=== PATIENT | female | born 1950 | race Caucasian/White ===

== ENCOUNTER → 2018-01-31 | Outpatient (CLI) | payer OTHER, MEDICARE ==
[~2018-01-31] VITALS: Ht 167.6 cm; Wt 50.6 kg
[~2018-01-31] MED LIST: ASPIR 8181 MG PO; HYDROCODON-ACE1 EAC7 PO; IBUPROFEN 200200 M1 PO; MOBIC7.5 MG PO; NOLVADEX20 MG PO; PROZAC20 MG PO; TRAMADOL 50 MG50 MG PO; VITAMIN B-12500 MCG PO; WELLBUTRIN XL300 MG PO; ZANAFLEX2 MG PO
--- NOTE | ~2018-01-31 | HPC ---
[facility] [place] [address] PAIN MANAGEMENT CONSULTATION Name: LISET BUTCHER Room #: REG HASMUKH Madelyn#: [id number] Admission: 01/31/18 Attend Phys: Cem Gaston MD Discharge: Date of : 50 Report #: [id number] THIS REPORT FOR: //name// CC: Jennie Gaston DATE OF SERVICE: 01/31/2018 CHIEF COMPLAINT: Neck pain with radiation into the occiput. HISTORY OF PRESENT ILLNESS: The patient is a madonna 67-year old who is here today at the request of Dr. Jennie Pareeds and also friend, Rayne Saldaña. Beginning about 3 weeks ago, she started having stabbing, constant pain in her neck that comes and goes. It radiates a time up through the occipital nerve distribution and into the back of the head and causes a headache. Most of it, however, is in the neck by her drawing. She has localized trigger points along the left side of the neck. Pain is worse with movements. At times, the pain is exacerbated, tension type stress. She states that she has had that chronically. It should be noted that about 3 months ago she was found unconscious on the 's Day after attending a gathering. She did not drink to excess. She had some amnesia of the events. In the following month of September, October, November and December, she did not experience any neck pain, so it seems unusual but there is a fall may have been related. It should also be noted that she has had two other similar episodes within the last 3 years and has had an extensive workup with CT of neck and head and visits to the neurologist, EEGs and other tests with no definitive answer for these spells of amnesia when she has been found down. There is no history of seizure disorder. The patient has not had conservative treatment at this point. No acupuncture. No chiropractor. No massage. No physical therapy. She has been given some tramadol, which she takes when the pain is severe and also tizanidine either which are helping very much. There may be some interactions with these medications, which we discussed further visit. MEDICATIONS: Prozac, Wellbutrin, aspirin, tamoxifen, ibuprofen 12 per day, calcium and tizanidine. Tramadol 50 mg has been prescribed as well 1 tablet q. 6 hours, she has been taking 3-4 per day. ALLERGIES: PENICILLIN. PAST MEDICAL HISTORY: Positive for depression, carpal tunnel syndrome. She had carpal [place] in [address] [address] PAIN MANAGEMENT CONSULTATION Name: LISET BUTCHER Room #: REG Bayron Joshi#: [id number] Admission: 01/31/18 Attend Phys: Cem Gaston MD Discharge: Date of : 50 Report #: [id number] SOCIAL HISTORY: She is and does not smoke. Drinks alcohol in a social setting, may drink up to 10 units per week. 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 REVIEW OF SYSTEMS: Positive for decreased appetite, right-sided occipital headache, blurred vision, occasional constipation, nocturia and depression. ADDENDUM PHYSICAL EXAMINATION: GENERAL: Pleasant and slender female. VITAL SIGNS: Blood pressure is 118/70, heart rate 79 and respirations 16. She is 5 feet, 6 inches, 111 pounds with a BMI of 18. HEENT: Reveals pupils to be equal, round and reactive to light. EOMs are intact. Mucous membranes are moist. NECK: Shows restrictions in lateral tilt to the right, the ipsilateral pain side. There is local tenderness along the right side of the neck. She has no pain with rotational movements, which are near normal. Flexion and extension also near normal. CHEST: Clear. CARDIAC: Rhythm is regular. EXTREMITIES: Examination of the upper extremities reveals normal strength with no numbness, tingling or weakness. Deep tendon reflexes are 3+ biceps, triceps, brachioradialis, knees and ankles. Reflexes at knees bilaterally were nearing clonus. IMAGING: MRI shows only mild C5-C6 and C6-C7 central stenosis; however, with mild degenerative osteophyte complex touching, but not indenting the spinal cord. There are no focal disk herniations. At the same levels, there are severe neural foraminal stenosis due to uncovertebral joint hypertrophy and moderate right-sided C4-C5 neural foraminal narrowing. There is cervical straightening with a grade 1 C7-T1 anterolisthesis, which is below the area of maximal discomfort. IMPRESSION: Cervicalgia with occipital headaches. There is some degenerative pathology within the spine. Several levels would be of concern particularly C5-C6 and C6-C7 and the right-sided neural foraminal narrowing at C4-C5. This also includes concern about a grade 1 C7-T1 anterolisthesis. Any of these might be pain generators for the cervical spine, but the most common cause of this localized pain would be facet arthropathy with secondary myofascial muscle spasm resulting in tension repelling into an occipital neuralgia. INITIAL TREATMENT RECOMMENDATIONS: Would be conservative, range of motion [facility] [address] [place] [address] PAIN MANAGEMENT CONSULTATION Name: LISET BUTCHER Room #: REG [facility]#: [id number] Admission: 01/31/18 Attend Phys: Cem Gaston MD Discharge: Date of : 50 Report #: [id number] exercises and I would take her off of the 12 ibuprofen and put her on meloxicam. We are very clear about my instructions to avoid the ibuprofen and we put her on meloxicam and even wrote that on my prescription for the pharmacist to convey to her. I would not use tramadol given the fact that she is already on two antidepressants including Wellbutrin and Prozac, serotonin syndrome is a concern and she has already had two episodes of being found down on the ground. There is a risk of seizure from serotonin accumulation with tramadol and SSRI medications, so I have taken her off of tramadol today and placed her on hydrocodone for severe pain episodes. She should start at 2.5 mg as needed on onset of headache and we will watch carefully to make sure that she does not become habituated to them. An injection might be of some benefit. The question is what type of injection. This is not classic radicular pain; however, an epidural injection might be of some benefit given the broad spread nature of her pain. A single injection would spread within the epidural space and cortisone might be of some benefit. She had short-term benefit from a Dosepak. Trigger points for the myofascial tension, which is present today would be of some benefit. Duration of response is the only concern there. I would consider facet injections, but more than one level might be necessary and these would also be temporary. We discussed pain mechanisms, rationale for treatment and decided today that I would provide her with a prescription for hydrocodone and give trigger point injection in splenius capitis and cervicalis. PROCEDURE: Skin was prepped with ChloraPrep. Skin anesthetized and a 27-gauge needle was used to infiltrate trigger points along the splenius capitis, cervicalis and mid cervical spine. A total of 6 mL of 0.25% bupivacaine mixed with 1 mg per mL of triamcinolone was utilized. She tolerated the procedure well. Pain was reduced at discharge. Prescription was provided for hydrocodone 5/325 one half to one tablet taken for severe pain q. 6 hours. Followup visit as needed. By: [id number] Cem Gaston MD /nt
[2018-01-31 12:39] VITALS: BP 118/70
== END | disposition home or self-care (01) ==
LOC: PAIN 08:56
DX: M79.1 Myalgia (principal); M54.12 Radiculopathy, cervical region; G44.89 Other headache syndrome; F32.9 Major depressive disorder, single episode, unspecified; Z87.891 Personal history of nicotine dependence; Z88.0 Allergy status to penicillin; Z88.6 Allergy status to analgesic agent; Z88.8 Allergy status to other drugs, medicaments and biological substances; Z79.82 Long term (current) use of aspirin; Z79.899 Other long term (current) drug therapy; Z79.891 Long term (current) use of opiate analgesic

== ENCOUNTER → 2018-02-28 | Outpatient (CLI) | payer OTHER, MEDICARE ==
[~2018-02-28] VITALS: Ht 167.6 cm; Wt 51.6 kg
--- NOTE | ~2018-02-28 | HPC ---
[facility] [address] [place] [address] PAIN MANAGEMENT CONSULTATION Name: KERRYCHERELLELISET Kalin Room #: REG HASMUKH Joshi#: [id number] Admission: 02/28/18 Attend Phys: Cem Gaston MD Discharge: Date of : 50 Report #: [id number] THIS REPORT FOR: //name// CC: Jennie Gaston DATE OF SERVICE: 02/28/2018 Followup visit for cervicalgia with myofascial components. The patient is here today for trigger point injection. Her new granddaughter will be born soon! She will be traveling to [place] to help care for her. She responded nicely to her last injections. We discussed this at her visit on 02/21/2018. PQRS review shows a pleasant female with a history of osteoarthritis of the neck. BMI is 18.4, her typical weight, although it is below 20, this is not abnormal for her. Vital signs, blood pressure 104/67, heart rate 73, respirations 14, pain intensity 3. She is not a fall risk. She is on no blood thinners. She is not under treatment for hypertension. She takes no opioid medications. She does not smoke. Trigger point is identified in the left neck, cervicalis and the splenius capitis. PROCEDURE: Trigger point injection, left neck. Skin was prepped with ChloraPrep and a 27-gauge needle was used to infiltrate a total of 5 mL of 0.25% bupivacaine with 1 mg per mL of triamcinolone. Gentle massage of the area performed following the injection. She tolerated the procedure well, was discharged. Follow up as needed. By: 1323 1813 Cem Gaston MD /nt
[2018-02-28 09:22] VITALS: BP 104/67
== END | disposition home or self-care (01) ==
LOC: PAIN 06:33
DX: M79.1 Myalgia (principal); M54.2 Cervicalgia; Z88.0 Allergy status to penicillin; Z88.6 Allergy status to analgesic agent; Z88.8 Allergy status to other drugs, medicaments and biological substances; Z79.82 Long term (current) use of aspirin; Z79.899 Other long term (current) drug therapy; Z87.891 Personal history of nicotine dependence; Z98.890 Other specified postprocedural states

== ENCOUNTER → 2018-07-25 | Outpatient (CLI) | payer OTHER, MEDICARE ==
[~2018-07-25] VITALS: Ht 167.6 cm; Wt 52.6 kg
[~2018-07-25] MED LIST changes: +AMBIEN 5 MG TABL5 M1 PO; +VENLAFAXINE HC225 MG PO
--- NOTE | ~2018-07-25 | HPC ---
[facility] [address] [place] [address] PAIN MANAGEMENT CONSULTATION Name: LISET BUTCHER Kalin Room #: REG HASMUKH Joshi#: [id number] Admission: 07/25/18 ������������������ Attend Phys: Cem Gaston MD Discharge: ������������������ Date of : 50 Report #: [id number] THIS REPORT FOR: //name// CC: Jennie Gaston DATE OF SERVICE: 07/25/2018 Followup visit for cervicalgia with myofascial components. The patient returns to pain clinic today and has responded nicely in the past to trigger point injections. She has pain and muscle spasm involving the splenius capitis and cervicalis. She has pain with lateral movements of her neck; tilt, [id number] on either direction causes an aching pain that radiates through her shoulder. She has less discomfort with rotational movements, flexion and extension suggesting that this is a cervical spondylitic facet arthropathy. This could then trigger the muscle tension that she is experiencing. Her neck is very slender and you can palpate what feels like spurring along the left side of the neck. We talked about a series of plain film x-rays to evaluate. She does have an MRI scan from last year, which demonstrates significant joint hypertrophy at C5-C6, C6-C7 and moderate right neural foraminal narrowing at each of the levels from C4-C5 through C6-C7. In addition, she has a grade 1 anterolisthesis of C7 on T1. PQRS: The patient has a history of osteoarthritis involving hands, larger joints and also the spondylitic changes of the neck. She is not a fall risk. She is on no blood thinners. No history of hypertension. She does not take opioid medication routinely, although I have given her hydrocodone in the past. She follows with Dr. Paredes who prescribes her medications for her. She has completed risk assessment tool and is considered at moderate risk related to family members with history of alcoholism and prescription drug misuse. No personal issues other than mild depression. Functional assessment tool 43/70. PHYSICAL EXAMINATION: Blood pressure is 126/79, heart rate 88, respirations 14. Pain is noted with lateral tilt. Palpable lateral spur noted in the right side of the neck, which is likely corresponding to the lateral mass facet arthropathy. IMPRESSION: Cervicalgia. There are myofascial components, there are probably also some spondylitic component as well. RECOMMENDATIONS: We discussed options for treatment including injections today, which have been helpful. She may also be a candidate in the future for trigger point injections or more advanced injection, either a facet injection using a lateral approach or an epidural injection. If she benefits from facet injections, I would consider her a candidate for facet radiofrequency ablation. [address] [address] PAIN MANAGEMENT CONSULTATION Name: LISET BUTCHER Room #: GURJIT Joshi#: [id number] Admission: 07/25/18 ������������������ Attend Phys: Cem Gaston MD Discharge: ������������������ Date of : 50 Report #: [id number] PROCEDURE: Myofascial trigger point injection, cervicalis and splenius capitis. She was placed in the prone position. Skin prepped with ChloraPrep. A 27-gauge needle was used to gently infiltrate the muscle at two locations. I injected a total at each spot of 2.5 mL of 0.25% bupivacaine and 15 mg triamcinolone. Gentle massage applied to the area after the injection. She tolerated the procedure well. Pain was reduced from 7 to 8 to 6 at discharge. Followup is necessary for further treatment. I agreed to provide her with a prescription if she requested, but she will again follow up with Dr. Paredes for medication management. ��������������������������������������������� ���������������������������������������� By: ��������������������������������������������� 1512 0009 Cem Gaston MD /nt
[2018-07-25 09:46] VITALS: BP 126/79
--- NOTE | 2018-07-25 09:58 | NUR ---
Pain Clinic Assessment: 1. History of Osteoarthritis: NECK History of Rheumatoid Arthritis: NONE 2. Height: 5 ft. 6 in. 167.6 cm. Weight: 116.0 lb. oz. 52.617 kg. Patient's BMI: 18.7 3. Vital Signs: BP: 126/79 Pulse: 88 Resp: 14 Temp: 02 Sat: 100 ECG Mon: 4. Pain Intensity: 7-8 5. Fall Risk: Dizziness: N Needs help standing or walking: N Fallen in the last 3 months: N Fall risk comments: FELL August -WENT TO ER 6. Patient on Blood Thinner: None 7. History of Hypertension: N 8. Opioid Therapy greater than 6 weeks: N Opiate Contract Signed: 9. Risk Assessment Tool Provided: MOD RISK 10. Functional Assessment Tool: 43/ 11. Recreational Drug Use: Never Drug Type: Tobacco Use: Never Smoker Tobacco Type: Amount or Packs/day: How Many Years: Alcohol Use: Yes Frequency: Weekly Quant: 1-2 A WEEK
== END | disposition home or self-care (01) ==
LOC: PAIN 07-11 09:03
DX: M79.18 Myalgia, other site (principal); M54.2 Cervicalgia; M19.90 Unspecified osteoarthritis, unspecified site

== ENCOUNTER → 2018-11-21 | Outpatient (CLI) | payer OTHER, MEDICARE ==
[~2018-11-21] VITALS: Ht 167.6 cm; Wt 52.6 kg
[~2018-11-21] MED LIST changes: +VENLAFAXINE HC150 M1 PO
--- NOTE | ~2018-11-21 | HPC ---
[facility] [address] [place] [place] [address] PAIN MANAGEMENT CONSULTATION Name: LISET BUTCHER Room #: REG HASMUKH Madelyn#: [id number] Admission: 11/21/18 ������������������ Attend Phys: Cem Gaston MD Discharge: ������������������ Date of : 50 Report #: [id number] THIS REPORT FOR: //name// CC: Jennie Gaston DATE OF SERVICE: 11/21/2018 REASON FOR VISIT: Followup visit for cervicalgia with myofascial pain. HISTORY OF PRESENT ILLNESS: The patient was last seen on 07/25/2018. She received trigger point injections in the splenius capitis and cervicalis and had a very good response with sustained pain relief for several months. Pain is now returning. She would like the injections once again. Pain radiates up into the occiput. It is worse with rotational movements. PHYSICAL EXAMINATION: GENERAL: She is a madonna 68-year-old female. VITAL SIGNS: She is 5 feet 6 inches, weight 116 and BMI of 18.7. Blood pressure 112/77, heart rate 97 and respirations 14. Pain intensity is 4 right now, 8/10 at its maximum. MUSCULOSKELETAL: She moves easily from sitting to standing position, ambulates without difficulty. She is not a fall risk. Examination of the neck reveals pain and tenderness below the occiput on the right. Pain is involving the splenius capitis and cervicalis muscles that does not seem to be associated much with the trapezius down into the area above the scapula. IMPRESSION: 1. Cervicalgia with myofascial components, which has responded nicely to trigger point injections. 2. Cervical spondylosis. RECOMMENDATIONS: Trigger point injections, cervicalis and splenius capitis. PROCEDURE: She was placed in the prone position. Skin was prepped with ChloraPrep. A 27-gauge needle was used to infiltrate the two muscles mentioned above, each with 2.5 mL of 0.25% bupivacaine and 15 mg of triamcinolone. I gently massage the area following the injections as we have done in the past with such good results. Pain reduced slightly at discharge to 1/10 in comparison to 8 on admission. Followup visit scheduled as needed. ��������������������������������������������� ���������������������������������������� By: ��������������������������������������������� 1250 [id number] Cem Gaston MD /nt
[2018-11-21 09:20] VITALS: BP 112/77
--- NOTE | 2018-11-21 09:32 | NUR ---
Pain Clinic Assessment: 1. History of Osteoarthritis: NECK History of Rheumatoid Arthritis: NONE 2. Height: 5 ft. 6 in. 167.6 cm. Weight: 116.0 lb. oz. 52.617 kg. Patient's BMI: 18.7 3. Vital Signs: BP: 112/77 Pulse: 97 Resp: 14 Temp: 02 Sat: 100 ECG Mon: 4. Pain Intensity: 4 now 8 max 5. Fall Risk: Dizziness: N Needs help standing or walking: N Fallen in the last 3 months: N Fall risk comments: FELL August -WENT TO ER 6. Patient on Blood Thinner: None 7. History of Hypertension: N 8. Opioid Therapy greater than 6 weeks: N Opiate Contract Signed: 9. Risk Assessment Tool Provided: MOD RISK 10. Functional Assessment Tool: 43 11. Recreational Drug Use: Never Drug Type: Tobacco Use: Never Smoker Tobacco Type: Amount or Packs/day: How Many Years: Alcohol Use: Yes Frequency: Weekly Quant:
== END | disposition home or self-care (01) ==
LOC: PAIN 09:10
DX: M79.18 Myalgia, other site (principal); M47.892 Other spondylosis, cervical region; Z88.0 Allergy status to penicillin; Z88.8 Allergy status to other drugs, medicaments and biological substances; Z79.82 Long term (current) use of aspirin; Z79.899 Other long term (current) drug therapy

== ENCOUNTER 2018-12-10 03:55 | Emergency (ER) | payer OTHER, MEDICARE ==
[~2018-12-10] VITALS: Ht 165.1 cm; Wt 51.1 kg
[2018-12-10 04:41] LABS: URINE BILIRUBIN NEGATIVE (Negative); URINE BLOOD NEGATIVE (Negative); URINE CLARITY CLEAR; URINE COLOR YELLOW; URINE GLUCOSE-RANDOM* NEGATIVE (Negative); URINE KETONES NEGATIVE (Negative); URINE LEUKOCYTES-REFLEX NEGATIVE (Negative); URINE NITRITE-REFLEX NEGATIVE (Negative); URINE PROTEIN (DIPSTICK) NEGATIVE (Negative); URINE SPECIFIC GRAVITY <= 1.005 (1.005-1.035); URINE UROBILINOGEN 0.2 E.U./dl (0.2-1.0)
[2018-12-10 04:58] LABS: ABSOLUTE NEUTROPHILS 2.5 thou/uL (1.4-8.2); BASOPHILS 1.2 % (0.0-2.0); EOSINOPHILS 2.4 % (0.0-3.0); HEMATOCRIT 38.9 % (37.0-47.0); LYMPHOCYTES 43.2 % (24.0-44.0); MCH 32.3 pg (26.0-34.0); MCHC 33.3 g/dL (28.0-37.0); MCV 97.1 fL (80.0-100.0); MONOCYTES 10.1 % (1.0-8.0); PLATELET COUNT 193 thou/uL (150-400); POLYS 43.1 % (36.0-66.0); RBC 4.01 mil/uL (4.20-5.00); RDW 13.9 % (10.5-14.5); WBC 5.7 thou/uL (4.0-11.0)
[2018-12-10 05:11] LABS: ANION GAP 11 mmol/L (7-16); BUN 14 mg/dL (7-18); CALCIUM 8.6 mg/dL (8.5-10.1); CHLORIDE 110 mmol/L (98-107); CO2 25 mmol/L (21-32); CREATININE 0.9 mg/dL (0.6-1.0); GLUCOSE 89 mg/dL (74-106); POTASSIUM 4.7 mmol/L (3.5-5.1); SODIUM 146 mmol/L (136-145)
[2018-12-10 05:17] LABS: ALBUMIN 3.5 g/dL (3.4-5.0); MAGNESIUM 2.4 mg/dL (1.8-2.4); SGOT 23 U/L (15-37); SGPT 24 U/L (30-65); TOTAL BILIRUBIN 0.1 mg/dL (<0.1-1.0); TOTAL PROTEIN 6.8 g/dL (6.4-8.2); TROPONIN-I <0.06 ng/mL (<0.06)
[2018-12-10 05:34] VITALS: BP 118/67
--- NOTE | 2018-12-11 13:41 | EKG ---
[place] [address] [facility] [place] [address] ELECTROCARDIOGRAM REPORT Name: LISET BUTCHER [facility] [id number] ������������������ Admission: 12/10/18 ������������������ Attend Phys: Discharge: 12/10/18 ������������������ Date of : 50 Report #: [id number] ����������������������������������������������������������������� [id number] THIS REPORT FOR: //name// [facility] ED Test Date: 2018-12-10 Test Time: 04:35:11 Pat Name: LISET BUTCHER Department: Room: Gender: F Financial Recording Clerk: MEDHAT : 1950 Requested By: Bob Bernal Order Number: [id number] MD: Jarrett Rangel Measurements Intervals [place] Rate: 66 P: 74 OH: 148 QRS: 67 QRSD: 99 T: 58 QT: 417 QTc: 437 Interpretive Statements Sinus rhythm Normal tracing No previous ECG available for comparison Electronically Signed On 12-11-2018 13:41:11 CDT by Jarrett Rangel [email or web address] ��������������������������������������������� <ELECTRONICALLY SIGNED> ���������������������������������������� By: Jarrett Rangel MD, [facility] ��������������������������������������������� 12/11/18 1341 0435 0435 Jarrett Rangel MD, FACC /EPI
== END 2018-12-10 05:34 | disposition home or self-care (01) ==
LOC: ER 03:55
PROVIDERS: Emergency Medicine
DX: S01.81XA Laceration without foreign body of other part of head, initial encounter (principal); S70.12XA Contusion of left thigh, initial encounter; F10.129 Alcohol abuse with intoxication, unspecified; Z88.5 Allergy status to narcotic agent; Z88.1 Allergy status to other antibiotic agents; Z88.0 Allergy status to penicillin; W10.9XXA Fall (on) (from) unspecified stairs and steps, initial encounter; Y92.89 Other specified places as the place of occurrence of the external cause; Y93.89 Activity, other specified; Y99.8 Other external cause status

== ENCOUNTER → 2019-05-25 | Outpatient (CLI) | payer OTHER, MEDICARE ==
[~2019-05-25] VITALS: Ht 157.5 cm; Wt 55.2 kg
--- NOTE | ~2019-05-25 | HPC ---
[facility] [address] [place] [address] PAIN MANAGEMENT CONSULTATION Name: LISET BUTCHER Room #: REG HASMUKH Madelyn#: [id number] Admission: 05/25/19 Attend Phys: Cem Gaston MD Discharge: Date of : 50 Report #: [id number] THIS REPORT FOR: //name// CC: Jennie Gaston DATE OF SERVICE: 05/25/2019 Followup visit for cervicalgia with myofascial pain. The patient is a madonna 69-year-old who responds beautifully to trigger point injections for left-sided cervicalgia with trigger point and myofascial pain. I have given her trigger points on several occasions, most recent in November of this year. Each time she has received injections, her pain scores dropped quite significantly for a sustained period of time. She would like to repeat the trigger point injections today. PQRS REVIEW: 1. She has a history of spondylosis of the cervical spine. 2. Her BMI is 22.2, blood pressure 136/93, heart rate 75, respirations 14, pain intensity 8/10. 3. Fall risk: None. No blood thinner medications. No antihypertensives and she is not currently on opioids. She has nonetheless filled out her paperwork and her risk to opioids is low with an ORT score of 1. Her functional assessment score is 48/70 suggesting significant interference of her day-to-day activities with her chronic neck pain. She denies use of marijuana, tobacco and drinks alcohol only in a social setting once or twice a week. PHYSICAL EXAMINATION: GENERAL: This is a madonna pleasant 69-year-old, alert and oriented. VITAL SIGNS: As noted above. NECK: Examination of the neck reveals decreased range of motion and right-sided tenderness involving the splenius capitis, cervicalis and also the trapezius. Trigger points were suggested for the muscles using the same solution 0.25% bupivacaine mixed with small amount of triamcinolone. She would like to proceed. PROCEDURE: Trigger points. After informed consent, she was placed in the prone position. Skin was prepped with ChloraPrep over the right side of the neck. Previously identified trigger points were identified along the cervical paravertebral muscles and I injected 4 separate trigger points, one in the cervicalis, one in the splenius capitis, one in the trapezius followed by one more distal in the trapezius. Each injection was 1 mL of 0.25% bupivacaine mixed with about 4 mg of triamcinolone. She tolerated the injections well. [address] [address] PAIN MANAGEMENT CONSULTATION Name: LISET BUTCHER Room #: REG [facility].#: [id number] Admission: 05/25/19 Attend Phys: Cem Gaston MD Discharge: Date of : 50 Report #: [id number] There were no complications. Pain score reduced by 50% at discharge. Follow up as needed. By: [id number] 2327 Cem Gaston MD /janna
[2019-05-25 11:04] VITALS: BP 136/93
--- NOTE | 2019-05-25 11:28 | NUR ---
Pain Clinic Assessment: 1. History of Osteoarthritis: NECK History of Rheumatoid Arthritis: NONE 2. Height: 5 ft. 2 in. 157.5 cm. Weight: 121.6 lb. oz. 55.157 kg. Patient's BMI: 22.2 3. Vital Signs: BP: 136/93 Pulse: 75 Resp: 14 Temp: 02 Sat: 100 ECG Mon: 4. Pain Intensity: 8 5. Fall Risk: Dizziness: N Needs help standing or walking: N Fallen in the last 3 months: N Fall risk comments: FELL August -WENT TO ER 6. Patient on Blood Thinner: None 7. History of Hypertension: N 8. Opioid Therapy greater than 6 weeks: N Opiate Contract Signed: 9. Risk Assessment Tool Provided: LOW RISK 06/09 10. Functional Assessment Tool: 11. Recreational Drug Use: Never Drug Type: Tobacco Use: Never Smoker Tobacco Type: Amount or Packs/day: How Many Years: Alcohol Use: Yes Frequency: Weekly Quant: 2
== END | disposition home or self-care (01) ==
LOC: PAIN 07:01
DX: M79.18 Myalgia, other site (principal); M54.2 Cervicalgia; Z98.890 Other specified postprocedural states; Z79.899 Other long term (current) drug therapy; Z88.0 Allergy status to penicillin; Z88.8 Allergy status to other drugs, medicaments and biological substances; Z79.82 Long term (current) use of aspirin